=== PATIENT | female | born 2000 | race Caucasian/White ===

== ENCOUNTER 2024-03-18 17:45 | Emergency (ER) | payer OTHER, SELFPAY ==
[2024-03-18 17:51] VITALS: BP 125/87; PULSE 84; TEMP 37.1; O2SAT 99; BMI 22.8
--- NOTE | 2024-03-18 18:04 | ED_ITS ---
HPI - URI/Sore Throat General Chief Complaint: Upper Respiratory Infection Stated Complaint: MISCARRIAGE LAST WEEK, POSS INFECTION Time Seen by Provider: 03/18/24 17:49 Source: patient History of Present Illness HPI Narrative: Patient is a 23-year-old female who presents to the emergency department for evaluation of upper respiratory symptoms that began yesterday. She reports sore throat, headache, nasal congestion. She has no significant coughing. She jerry es vomiting or diarrhea. She states she was concerned because she had a miscarriage last week and was given a medication to induce her to pass the tissue to avoid a D&C. She states she was told if she did not feel well she should be evaluated. She denies any severe abdominal pain, fevers or vomiting. She continues to have intermittent vaginal bleeding and cramping. She states she has already followed up for outpatient labs to evaluate her CBC and is scheduled for serial quantitative hCG levels. Related Data Previous Rx's ?Medication ?Instructions ?Recorded [id number] 10 ml PO Q6H PRN cold symptoms 03/18/24 2 mg-30 mg-10 mg/5 mL oral syrup #200 mL (Bromfed DM) Allergies Allergy/AdvReac Type Severity Reaction Status Date / Time Penicillins Allergy Severe Verified 03/18/24 17:55 Review of Systems ROS Constitutional Denies: fever or chills Ears, nose, mouth, and throat Reports: throat pain and nasal congestion Cardiovascular Denies: chest pain Respiratory Denies: shortness of breath or cough Gastrointestinal Reports: abdominal pain; Denies: nausea, vomiting or diarrhea Genitourinary Reports: pelvic pain and vaginal bleeding Integumentary/Breast Denies: rash Neurological Reports: headache Hematologic/Lymphatic Denies: easy bruising or easy bleeding Exam Narrative Exam Narrative: Gen.: Awake, alert, in no distress Head: Normocephalic, atraumatic ENT: Moist mucous membranes, Bilateral TMs clear, mild pharyngeal erythema with uvula midline. Clear speech. No trismus or drooling Respiratory: No respiratory distress, lungs clear bilaterally Cardio: Regular rate and rhythm Extremities: Moves extremities equally Psych: Normal mood and affect Neuro: No focal neuro deficit Skin: Warm, dry, intact Constitutional Vital Signs, click to edit/add: Last Vital Signs Temp 98.7 F 03/18/24 17:51 Pulse 84 03/18/24 17:51 Resp 16 03/18/24 17:51 BP 125/87 03/18/24 17:51 Pulse Ox 99 03/18/24 17:51 O2 Del Method Room Air 03/18/24 17:51 Course Vital Signs Vital signs: Vital Signs Temperature 98.7 F 03/18/24 17:51 Pulse Rate 84 03/18/24 17:51 Respiratory Rate 16 03/18/24 17:51 Blood Pressure 125/87 03/18/24 17:51 Pulse Oximetry 99 03/18/24 17:51 Oxygen Delivery Method Room Air 03/18/24 17:51 Temperature 98.7 F 03/18/24 17:51 Pulse Rate 84 03/18/24 17:51 Respiratory Rate 16 03/18/24 17:51 Blood Pressure 125/87 03/18/24 17:51 Pulse Oximetry 99 03/18/24 17:51 Oxygen Delivery Method Room Air 03/18/24 17:51 MDM - URI/Sore Throat MDM Narrative Medical decision making narrative: Strep screen is negative, patient with exam consistent with viral upper respiratory infection. Treated with Decadron,Bromfed-DM for home. Follow-up with PCP and return to the emergency department if symptoms change or worsen. Medical Records Attestation: I reviewed the patient's medical records. Lab Data Attestation: I reviewed the patient's lab results. Labs: Lab Results 03/18/24 Range/Units 18:21 Streptococcus Screen Negative Discharge Plan Discharge Stand Alone Forms: Portal Instructions Chief Complaint: Upper Respiratory Infection Clinical Impression: Upper respiratory infection, Pharyngitis Patient Disposition: Home, Self-Care Time of Disposition Decision: 18:58 Condition: Good Prescriptions / Home Meds: New [id number] [Bromfed DM] 2-30-10 mg/5 mL syrup 10 ml PO Q6H PRN (Reason: cold symptoms) Qty: 200 0RF Print Language: Swedish Instructions: Pharyngitis (ED), Upper Respiratory Infection (ED) Referrals: [facility] [Primary Care Provider] - 1 week
[2024-03-18] MEDS: DEXAMETHASONE SOD PHOS 10 MG/ML VIAL PO (18:17)
[2024-03-18 18:45] LABS: Strep A Antigen Screen Negative
[2024-03-18 18:46] LABS: Internal Control Within Normal Limits
== END 2024-03-18 19:08 | disposition home or self-care (01) ==
PROVIDERS: Physician Assistant; Emergency Provider Emergency Medicine Emergency Medical Services
DX: J02.9 Acute pharyngitis, unspecified (principal); J06.9 Acute upper respiratory infection, unspecified
CPT/HCPCS: 87070; 87880; 99283; J1100